=== PATIENT | female | born 1995 | race Caucasian/White ===

== ENCOUNTER 2022-03-10 18:14 | Emergency (ER) | payer BC ==
[~2022-03-10] VITALS: Ht 175.3 cm; Wt 73.5 kg
[2022-03-10] MEDS ORDERED: [UNRECOGNIZED DRUG - OTHER] (18:45)
== END 2022-03-10 21:02 | disposition home or self-care (01) ==
LOC: ER 18:14
DX: H66.92 Otitis media, unspecified, left ear (principal); Z88.2 Allergy status to sulfonamides